=== PATIENT | male | born 1935 | race Caucasian/White ===

== ENCOUNTER → 2017-12-05 14:40 | Outpatient (CLI) | payer MEDICARE, SELFPAY ==
--- NOTE | 2017-12-05 14:46 | CT_ITS ---
STUDY: CT ABDOMEN AND PELVIS WITHOUT AND WITH CONTRAST REASON FOR EXAM: Male, 82 years old. Left renal mass RADIATION DOSAGE (If Supplied By Facility): CTDIvol = ( 17.60 ) mGy, DLP = ( 2087.46 ) mGycm TECHNIQUE: Transaxial images were obtained from the lower chest to the upper thighs without oral contrast. Imaging was obtained before and after administration of 100 ml of Isovue 300. Sagittal and coronal images were reconstructed. Individualized dose optimization techniques were used for this CT. COMPARISON: None. FINDINGS: There is minimal dependent atelectasis in both lung bases. There are mild chronic changes in both lung bases. There is no pleural effusion. The heart is normal in size. There are coronary artery calcifications. There are dense calcifications in the mitral valve. There are small calcified lymph nodes in the right hilum and next to the lower esophagus. The liver is unremarkable. The gallbladder is contracted. There is a calcification in the lumen of the gallbladder measuring 1 cm. The spleen is unremarkable. The pancreas is unremarkable. The adrenal glands are unremarkable. There is an 8 mm cyst in the lower pole of the right kidney which does not enhance. There is no dilatation of the collecting system in the right kidney. There is a 1 cm cyst in the upper pole of the left kidney showing no enhancement. 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 There is no dilatation of the collecting system in the left kidney. The stomach is unremarkable. The small bowel is unremarkable. There are diverticula in the distal colon without adjacent stranding. The appendix is visualized and appears normal. There are moderate vascular calcifications. The inferior vena cava is unremarkable. The retroperitoneum is unremarkable. There is no free fluid in the abdomen. The urinary bladder is unremarkable. The prostate measures 5.8 cm in transverse diameter and extends partially into the lower bladder. There are small phleboliths scattered in the lower pelvis. The soft tissues of the abdominal wall are unremarkable. There are moderate degenerative changes in the visualized spine. CT/CT Abd/Pelvis W/WO Contrast IMPRESSION: There are cysts in both kidneys, measuring 8 mm in the lower pole of the right kidney and 10 mm in the upper pole of the left kidney. The cysts are simple and benign. There are no suspicious masses in either kidney. There is no hydronephrosis. The prostate is prominent in size and extends partially into the lower aspect of the bladder. There is diverticulosis of the distal colon. There are no acute bowel abnormalities. There is no ascites, free air, inflammation or significant lymphadenopathy. The gallbladder is contracted around a 1 cm stone. There is no evidence of gallbladder wall thickening or inflammation. Electronically Signed: Conchis Meneses MD at 0:19 EDT Tel Direct: [phone], Service support ,
[2017-12-05 15:31] LABS: CREATININE FINGERSTICK 0.9 mg/dL (0.70-1.30); EGFR FINGERSTICK > 60.0000 mL/min (>60)
== END ==
PROVIDERS: Family Provider Internal Medicine; PCP Internal Medicine; Referring Provider Nurse Practitioner Adult Health; Visit Provider Nurse Practitioner Adult Health
DX: N28.89 Other specified disorders of kidney and ureter (principal)
CPT/HCPCS: 74178; Q9967